=== PATIENT | female | born 1945 | race Caucasian/White ===

== ENCOUNTER → 2017-04-28 | Outpatient (CLI) | payer MEDICARE, OTHER ==
[~2017-04-28] MED LIST: CALCIUM 600 +1 EA12 PO; CENTRUM SILVER1 EAC1 PO; LIPITOR10 MG PO; NEURONTIN400 MG PO; PRILOSEC20 MG PO; VICODIN 5-3001 EACH PO; XARELTO10 MG PO
== END | disposition disaster alternative care site (69) ==
LOC: GKIC 10:33
DX: Z12.89 Encounter for screening for malignant neoplasm of other sites (principal); C50.212 Malignant neoplasm of upper-inner quadrant of left female breast; C79.51 Secondary malignant neoplasm of bone
CPT/HCPCS: A9552